=== PATIENT | male | born 1975 | race Caucasian/White ===

== ENCOUNTER → 2017-06-01 | Outpatient (CLI) | payer BC ==
--- NOTE | 2017-06-01 12:52 | US ---
EXAMINATION TYPE: US abdomen complete DATE OF EXAM: 06/01/2017 COMPARISON: NONE CLINICAL HISTORY: R74.8 ABN LEVELS OF OTHER SERUM ENZYMES. Elevated liver enzymes EXAM MEASUREMENTS: Liver Length: 18.1 cm Gallbladder Wall: 0.3 cm CBD: 0.4 cm Spleen: 11.8 cm Right Kidney: 11.8 x 4.7 x 5.5 cm Left Kidney: 12.6 x 5.9 x 4.8 cm Technical limitations due to large amount of overlying bowel content Pancreas: Obscured by bowel gas Liver: enlarged, attenuating Gallbladder: no evidence of stones Evidence for sonographic Moya's sign: no CBD: appears wnl as visualized Spleen: wnl Right Kidney: no evidence of hydronephrosis Left Kidney: upper limits of normal in size, no evidence of hydronephrosis Upper IVC: wnl Abd Aorta: visualized portions appear wnl, bifurcation obscured IMPRESSION: 1. Mild fatty infiltration the liver
== END | disposition home or self-care (01) ==
LOC: RADUSWWP 06:55
PROVIDERS: ATTEND Family Medicine
DX: K76.0 Fatty (change of) liver, not elsewhere classified (principal)
CPT/HCPCS: 76700

== ENCOUNTER 2024-04-17 19:52 | Emergency (ER) | payer BC ==
--- NOTE | 2024-04-17 20:20 | ED ---
Abdominal Pain HPI <Carleen Anderson - Last Filed: 04/17/24 20:17> <Bart Montelongo - Last Filed: 05/03/24 03:14> - General Stated Complaint: mass on abd Time Seen by Provider: 04/17/24 20:17 - History of Present Illness Initial Comments: Quick [id number] male presenting for mass in abdomen. States for the past 4 days he has been experiencing right-sided abdominal pain that has been worsening in severity over the past day. Today he underwent CT abdomen with contrast ordered by PCP which revealed 7.5 cm mass in abdomen and was sent to ER for further workup. States they believe it may be an abdominal aortic aneurysm. (Carleen Anderson) - Related Data Home Medications Medication Instructions Recorded Confirmed Estrogen Tab 1 dose PO DAILY 06/30/21 07/05/21 Loratadine-Pseudoeph 10-240 mg 1 tab PO DAILY 06/30/21 07/05/21 [Claritin-D 24 Hour] Multivitamins, Thera [Multivitamin 1 tab PO DAILY 06/30/21 07/05/21 (formulary)] Testosterone Injection 1 dose SQ WEEKLY 06/30/21 07/05/21 diphenhydrAMINE [Benadryl] 50 mg PO HS PRN 06/30/21 07/05/21 Previous Rx's Medication Instructions Recorded Acetaminophen-Codeine 300-30mg 1 tab PO Q4H PRN #16 tablet 04/17/24 [Tylenol w/codeine #3] Allergies Allergy/AdvReac Type Severity Reaction Status Date / Time No Known Allergies Allergy Verified 04/17/24 20:44 Review of Systems ROS Other: All systems not noted in ROS Statement are negative. <Carleen Anderson - Last Filed: 04/17/24 20:17> ROS Other: All systems not noted in ROS Statement are negative. <Bart Montelongo - Last Filed: 05/03/24 03:14> ROS Statement: Those systems with pertinent positive or pertinent negative responses have been documented in the HPI. Past Medical History Additional Past Medical History / Comment(s): allergies., hx fatty liver., states having pain right side. History of Any Multi-Drug Resistant Organisms: MRSA Date of last positivie culture/infection: 10 yrs ago- 2011 MDRO Source:: arm Additional Past Surgical History / Comment(s): colonoscopy Past Anesthesia/Blood Transfusion Reactions: Previous Problems w/ Anesthesia Additional Past Anesthesia/Blood Transfusion Reaction / Comment(s): states difficulty coming out of anesthesia. Past Psychological History: No Psychological Hx Reported Smoking Status: Never smoker Past Alcohol Use History: Occasional Past Drug Use History: None Reported - Past Family History Mother Additional Family Medical History / Comment(s): celiac disease <Carleen Anderson - Last Filed: 04/17/24 20:17> General Exam <Carleen Anderson - Last Filed: 04/17/24 20:17> General appearance: alert, in no apparent distress Head exam: Present: atraumatic, normocephalic Eye exam: Present: normal appearance. Absent: scleral icterus, conjunctival injection ENT exam: Present: normal oropharynx Neck exam: Present: normal inspection Respiratory exam: Present: normal lung sounds bilaterally. Absent: respiratory distress, wheezes, rales, rhonchi, stridor, accessory muscle use Cardiovascular Exam: Present: regular rate, normal rhythm, normal heart sounds. Absent: systolic murmur, diastolic murmur, rubs, gallop GI/Abdominal exam: Present: soft, tenderness (Mild right upper quadrant tenderness no rebound or guarding). Absent: distended, guarding, rebound, rigid, mass, pulsatile mass, hernia Extremities exam: Present: normal inspection, normal capillary refill. Absent: pedal edema, calf tenderness Back exam: Present: normal inspection. Absent: CVA tenderness (R), CVA tenderness (L) Neurological exam: Present: alert Skin exam: Present: warm, dry, intact, normal color. Absent: rash <Bart Montelongo - Last Filed: 05/03/24 03:14> - General Exam Comments Initial Comments: Visual Physical Exam General: Well-appearing, nontoxic, no acute distress. Head: Normocephalic, atraumatic Eyes: PERRLA, EOMI ENT: Airway patent Chest: Nonlabored breathing Skin: No visual rash, normal skin tone Neuro: Alert and oriented 3 Musculoskeletal: No gross abnormalities (Carleen Anderson) Course Vital Signs 04/17/24 04/17/24 04/17/24 20:39 22:01 23:31 Temperature 98.5 F Pulse Rate 92 84 84 Respiratory 22 18 18 Rate Blood Pressure 158/89 177/119 175/102 O2 Sat by Pulse 97 99 99 Oximetry Medical Decision Making <JustinTelmaCarleen - Last Filed: 04/17/24 20:17> - Lab Data Result diagrams: 04/17/24 21:21 04/17/24 21:21 <AartiwashingtonBart - Last Filed: 05/03/24 03:14> - Medical Decision Making I completed the quick note portion of this chart signed Carleen Anderson PA-C (Carleen Anderson) Was pt. sent in by a medical professional or institution (Dr. PA, GENERAL MERCHANDISE MANAGER, urgent care, hospital, or [place] health [place] facility...) When possible be specific @ -Differential Abdominal Pain Men: Appendicitis, cholecystitis, diverticulosis, ischemic bowel, pancreatitis, hepatitis, UTI, gastroenteritis, AAA, incarcerated hernia, bowel obstruction, constipation, inflammatory bowel, hepatitis, peptic ulcer disease, splenic infarction, perforated viscus, testicular torsion, this is not meant to be an all-inclusive list Did you speak to anyone other than the patient for history (EMS, parent, family, police, friend...)? What history was obtained from this source @ -[No] Did you review nursing and triage notes (agree or disagree)? Why? @ -[I reviewed and agree with nursing and triage notes] Were old charts reviewed (outside hosp., previous admission, EMS record, old EKG, old radiological studies, urgent care reports/EKG's, [place] health care facility records)? Report findings @ -[No old charts were reviewed] Differential Diagnosis (chest pain, altered mental status, abdominal pain women, abdominal pain men, vaginal bleeding, weakness, fever, dyspnea, syncope, headache, dizziness, GI bleed, back pain, seizure, CVA, palpatations, mental health, musculoskeletal)? @ -[not applicable] EKG interpreted by me (3pts min.). @ -[As above] X-rays interpreted by me (1pt min.). @ -[None done] CT interpreted by me (1pt min.). @ -[None done] U/S interpreted by me (1pt. min.). @ -[None done] What testing was considered but not performed or refused? (CT, X-rays, U/S, labs)? Why? @ -[None] What meds were considered but not given or refused? Why? @ -[None] Did you discuss the management of the patient with other professionals (professionals i.e. , PA, GENERAL MERCHANDISE MANAGER, lab, RT, psych nurse, social staff worker, reservations sales supervisor, teacher, corporate banking officer, case specialist)? Give summary @ -[Discussed case with the patient's primary physician to help expedite workup Was smoking cessation discussed for >3mins.? @ -[No] Was critical care preformed (if so, how long)? @ -[No] Were there social determinants of health that impacted care today? How? (Homelessness, low income, unemployed, alcoholism, drug addiction, transportation, low edu. Level, literacy, decrease access to med. care, [facility], rehab)? @ -[No] Was there de-escalation of care discussed even if they declined (Discuss DNR or withdrawal of care, Hospice)? DNR status @ -[No] What co-morbidities impacted this encounter? (DM, HTN, Smoking, COPD, CAD, Cancer, CVA, ARF, Chemo, Hep., AIDS, mental health diagnosis, sleep apnea, morbid obesity)? @ -[None] Was patient admitted / discharged? Hospital course, mention meds given and route, prescriptions, significant lab abnormalities, going to OR and other pe rtinent info. @ -[Patient is 48-year-old man who is here to have evaluation after he was found to have mass in the right upper quadrant which was concerning for possible venous aneurysm. The patient did have additional evaluation with ultrasound and at this point is felt that the mass does not involve an aneurysm. Discussed findings with the patient who would like to have further workup as outpatient. He does appear stable for this at the moment. We discussed appropriate further care and also return parameters. I did discuss with the patient's primary physician who will help to expedite the workup. Undiagnosed new problem with uncertain prognosis? @ -[No] Drug Therapy requiring intensive monitoring for toxicity (Heparin, Nitro, Insulin, Cardizem)? @ -[No] Were any procedures done? @ -[No] Diagnosis/symptom? @ -[Acute right upper quadrant abdominal mass Acute, or Chronic, or Acute on Chronic? @ -[Acute Uncomplicated (without systemic symptoms) or Complicated (systemic symptoms)? @ -[Uncomplicated Side effects of treatment? @ -[No] Exacerbation, Progression, or Severe Exacerbation? @ -[No] Poses a threat to life or bodily function? How? (Chest pain, [place], [place], pneumonia, PE, COPD, DKA, ARF, appy, cholecystitis, CVA, Diverticulitis, Homicidal, Suicidal, threat to staff... and all critical care pts) @ -[Yes there is risk of malignancy, requires close follow-up for additional evaluation All treatments are based on ideal body weight as in ED triage (Bart Montelongo) - Lab Data Lab Results 04/17/24 04/17/24 04/17/24 Range/Units 21:21 21:21 22:01 WBC 6.9 (3.8-10.6) k/uL RBC 5.76 (4.30-5.90) m/uL Hgb 17.3 (13.0-17.5) gm/dL Hct 50.9 (39.0-53.0) % MCV 88.3 (80.0-100.0) fL MCH 30.0 (25.0-35.0) pg MCHC 34.0 (31.0-37.0) g/dL RDW 12.6 (11.5-15.5) % Plt Count 220 (150-450) k/uL MPV 7.6 Neutrophils % 58 % Lymphocytes % 27 % Monocytes % 6 % Eosinophils % 7 % Basophils % 1 % Neutrophils # 4.0 (1.3-7.7) k/uL Lymphocytes # 1.8 (1.0-4.8) k/uL Monocytes # 0.4 (0-1.0) k/uL Eosinophils # 0.5 (0-0.7) k/uL Basophils # 0.0 (0-0.2) k/uL Sodium 138 (137-145) mmol/L Potassium 4.4 (3.5-5.1) mmol/L Chloride 102 (98-107) mmol/L Carbon Dioxide 25 (22-30) mmol/L Anion Gap 11 mmol/L BUN 17 (9-20) mg/dL Creatinine 1.04 (0.66-1.25) mg/dL Est GFR (CKD-EPI)AfAm >90 (>60 ml/min/1.73 sqM) Est GFR (CKD-EPI)NonAf 84 (>60 ml/min/1.73 sqM) Glucose 104 H (74-99) mg/dL Calcium 10.0 (8.4-10.2) mg/dL Total Bilirubin 0.8 (0.2-1.3) mg/dL AST 45 (17-59) U/L ALT 51 H (4-49) U/L Alkaline Phosphatase 87 (38-126) U/L Total Protein 8.8 H (6.3-8.2) g/dL Albumin 5.1 H (3.5-5.0) g/dL Amylase 57 (30-110) U/L Lipase 95 (23-300) U/L Urine Color Light Yellow Urine Appearance Clear (Clear) Urine pH 6.5 (5.0-8.0) Ur Specific [place] 1.046 H (1.001-1.035) Urine Protein Negative (Negative) Urine Glucose (UA) Negative (Negative) Urine Ketones Negative (Negative) Urine Blood Negative (Negative) Urine Nitrite Negative (Negative) Urine Bilirubin Negative (Negative) Urine Urobilinogen <2.0 (<2.0) mg/dL Ur Leukocyte Esterase Negative (Negative) Disposition <Carleen Anderson - Last Filed: 04/17/24 20:17> Is patient prescribed a controlled substance at d/c from ED?: Yes When asked, does pt state using other controlled substances?: No If prescribed controlled substance>3 days was MAPS reviewed?: Prescribed <3 Days If opioid is for acute pain is fill amount 7 days or less?: Yes If Rx opioid, was Start Talking consent form obtained?: Yes <Bart Montelongo - Last Filed: 05/03/24 03:14> Clinical Impression: Abdominal mass, right upper quadrant Disposition: HOME SELF-CARE Condition: Good Instructions (If sedation given, give patient instructions): Abdominal Pain (ED) Additional Instructions: As we discussed, you must follow-up to have further evaluation of the abdominal mass. MRI may be required or biopsy, to ensure that this does not represent a tumor or cancer. Prescriptions: Acetaminophen-Codeine 300-30mg [Tylenol w/codeine #3] 1 tab PO Q4H PRN #16 tablet PRN Reason: Pain Referrals: Alexy Jacobs MD [Primary Care Provider] - 1-2 days
[2024-04-17 20:44] VITALS: TEMP 98.5
[2024-04-17 21:34] LABS: Basophils % (A) 1 %; Eosinophils # (A) 0.5 k/uL (0-0.7); Eosinophils % (A) 7 %; HCT 50.9 % (39.0-53.0); HGB 17.3 gm/dL (13.0-17.5); Lymphocytes # (A) 1.8 k/uL (1.0-4.8); Lymphocytes % (A) 27 %; MCV 88.3 fL (80.0-100.0); Mean Platelet Volume 7.6; Monocytes # (A) 0.4 k/uL (0-1.0); Monocytes % (A) 6 %; Neutrophils % (A) 58 %; Platelet Count 220 k/uL (150-450); RBC 5.76 m/uL (4.30-5.90); RDW 12.6 % (11.5-15.5); WBC 6.9 k/uL (3.8-10.6)
[2024-04-17 21:47] LABS: ALT 51 U/L (4-49); African American GFR (CKD) >90 (>60 ml/min/1.73 sqM); Amylase 57 U/L (30-110); Anion Gap 11 mmol/L; Blood Urea Nitrogen 17 mg/dL (9-20); Carbon Dioxide 25 mmol/L (22-30); Chloride 102 mmol/L (98-107); Glucose 104 mg/dL (74-99); Lipase 95 U/L (23-300); Non-African American GFR(CKD) 84 (>60 ml/min/1.73 sqM); Sodium 138 mmol/L (137-145); Total Bilirubin 0.8 mg/dL (0.2-1.3)
[2024-04-17 21:51] LABS: AST 45 U/L (17-59); Albumin 5.1 g/dL (3.5-5.0); Alkaline Phosphatase 87 U/L (38-126); Potassium 4.4 mmol/L (3.5-5.1); Total Protein 8.8 g/dL (6.3-8.2)
--- NOTE | 2024-04-17 21:59 | US ---
EXAMINATION TYPE: US abdomen limited DATE OF EXAM: 04/17/2024 COMPARISON: Same day CT CLINICAL INDICATION: Male, 48 years old with history of evaluate abdominal mass near IVC; Abnormal CT TECHNIQUE: Midline ABD near IVC FINDINGS: Solid, hypoechoic mass midline abdomen as visualized on CT compressing IVC= 8.9 x 6.3 x 6. 5 cm, this has peripheral blood flow ?etiology There is a hypoechoic mass which may have a small amount of vascularity within or adjacent to this st ructure. This structure is adjacent to the inferior vena cava. Based on the ultrasound images this ap pears to be compressing and displacing the inferior vena cava. No large internal flow is evident. IMPRESSION: 1. Large mass adjacent to the inferior vena cava appears to be separate from the inferior vena cava based on ultrasound. Mass such as neoplasm should be considered. Additional workup recommended [facility], , 04/17/2024 9:57 PM
[2024-04-17 22:04] VITALS: PULSE 84; RESP 18
[2024-04-17 22:26] LABS: Appearance,Urine Clear (Clear); Bilirubin,Urine Negative (Negative); Blood,Urine Negative (Negative); Color,Urine Light Yellow; Glucose,Urine (UA) Negative (Negative); Ketones,Urine Negative (Negative); Leukocyte Esterase,Urine Negative (Negative); Nitrite,Urine Negative (Negative); PH, Urine 6.5 (5.0-8.0); Protein,Urine Negative (Negative); Urobilinogen,Urine <2.0 mg/dL (<2.0)
[2024-04-17 22:57] LABS: Specific Gravity,Urine 1.046 (1.001-1.035)
[2024-04-17] MEDS: Acetaminophen-Codeine 300-30mg TAB PO STA (23:30)
[2024-04-17 23:32] VITALS: BP 175/102
== END 2024-04-17 23:32 | disposition home or self-care (01) ==
LOC: EC 19:52
DX: R19.01 Right upper quadrant abdominal swelling, mass and lump (principal)
CPT/HCPCS: 36415; 76705; 80053; 81003; 82150; 83690; 85025; 99284

== ENCOUNTER → 2024-04-17 | Outpatient (CLI) | payer BC ==
[2024-04-17 16:40] LABS: Basophils # (A) 0.1 k/uL (0-0.2); Basophils % (A) 1 %; Eosinophils # (A) 0.4 k/uL (0-0.7); Eosinophils % (A) 6 %; HCT 49.3 % (39.0-53.0); HGB 16.4 gm/dL (13.0-17.5); Lymphocytes % (A) 26 %; MCH 29.6 pg (25.0-35.0); MCHC 33.3 g/dL (31.0-37.0); MCV 88.9 fL (80.0-100.0); Mean Platelet Volume 7.6; Monocytes # (A) 0.6 k/uL (0-1.0); Monocytes % (A) 8 %; Neutrophils # (A) 4.1 k/uL (1.3-7.7); Neutrophils % (A) 55 %; Platelet Count 221 k/uL (150-450); RBC 5.55 m/uL (4.30-5.90); RDW 12.6 % (11.5-15.5); WBC 7.4 k/uL (3.8-10.6)
[2024-04-17 16:48] LABS: ALT 50 U/L (4-49); AST 36 U/L (17-59); African American GFR (CKD) 81 (>60 ml/min/1.73 sqM); Albumin 4.9 g/dL (3.5-5.0); Albumin/Globulin Ratio 1.4; Alkaline Phosphatase 87 U/L (38-126); Amylase 57 U/L (30-110); Anion Gap 9 mmol/L; Blood Urea Nitrogen 19 mg/dL (9-20); Calcium 10.2 mg/dL (8.4-10.2); Carbon Dioxide 27 mmol/L (22-30); Chloride 102 mmol/L (98-107); Globulin 3.4 g/dL; Glucose 87 mg/dL (74-99); Lipase 86 U/L (23-300); Non-African American GFR(CKD) 70 (>60 ml/min/1.73 sqM); Potassium 4.5 mmol/L (3.5-5.1); Sodium 138 mmol/L (137-145); Total Bilirubin 0.6 mg/dL (0.2-1.3); Total Protein 8.3 g/dL (6.3-8.2)
--- NOTE | 2024-04-17 18:51 | CT ---
EXAMINATION TYPE: CT abdomen pelvis w con DATE OF EXAM: 04/17/2024 5:49 PM COMPARISON: None. CLINICAL INDICATION: Male, 48 years old with history of R19.00 INTRA-ABD AND PELVIC SWELLING, MASS AN D LUM, Intra-abdominal pelvic swelling, mass and lump unspecified site. TECHNIQUE: Axial images were obtained from above the diaphragm to the pubic rami in the axial plane a t 5 mm thick sections. Reconstructed images are reviewed on the computer in the coronal plane. CONTRAST: 100 ml mL of Isovue 300. Study performed with Oral Contrast DLP: 1964.2 mGycm, Automated exposure control for dose reduction was used. FINDINGS: Limited CT sections are obtained the lung bases. The lung bases are clear. CT ABDOMEN: Liver: Normal Spleen: Normal Pancreas: Normal Adrenal glands: The adrenal glands are normal. Gallbladder: Normal Kidneys: No masses are evident. No hydronephrosis is present. No cysts are present. Delayed images were obtained through the kidneys, which remain unremarkable. Aorta: Normal Inferior vena cava: There may be a large mass or aneurysm within the mid inferior vena cava. This kai sures 7.[address] with contrast in the venous phase may be useful for additional evaluatio n. Ultrasound may be useful for additional workup CT PELVIS: Loops of bowel within the abdomen and pelvis are normal. Scattered diverticuli are present. There are loops of bowel which are incompletely distended or lack oral contrast limiting their evaluation. Appendix: Normal as visualized. Urinary bladder: Normal. Genitourinary structures: Prostate appears normal Osseous structures: No suspicious lytic or sclerotic lesions. IMPRESSION: 1. Large mass involving or adjacent to the mid inferior vena cava. This area measures approximately 7.5 cm in diameter. Additional workup is recommended. [facility], , 04/17/2024 6:48 PM
== END | disposition home or self-care (01) ==
LOC: RADCTMAIN 15:53
PROVIDERS: ATTEND Family Medicine
DX: R19.00 Intra-abdominal and pelvic swelling, mass and lump, unspecified site (principal)
CPT/HCPCS: 80053; 82150; 83690; 85025; 74177; Q9967

== ENCOUNTER 2024-05-28 16:48 | Observation (INO) | payer BC ==
--- NOTE | 2024-05-28 20:05 | ED ---
General Adult HPI - General Chief complaint: Headache Stated complaint: high blood pressure after chemo Time Seen by Provider: 05/28/24 19:48 Source: patient Mode of arrival: ambulatory Limitations: no limitations - History of Present Illness Initial comments: Patient is a pleasant 48-year-old gentleman past medical history of testicular cancer currently receiving chemotherapy presenting today for hypertension. Patient states that in April he presented for abdominal pain was found to have a mass in his abdomen concerning for testicular cancer. He was noted to have hypertension at that point however was not started on any blood pressure medications. Patient started chemotherapy on Sunday and received it daily since then. Over the last 3 days his blood pressure is continuously increased. He was also started on steroids on Sunday as well. Patient states that today he developed a pounding headache, rates pain as 5/10. Developed during ch emotherapy today. He was sent to the emergency department for further evaluation of high blood pressure. Patient denies changes in vision, focal numbness or weakness, slurred speech, dizziness. He states he has intermittent cramping left-sided chest pain but denies any currently. No history ACS, patient's father did have a heart attack in his 60s. No history of strokes. Patient denies no nausea or vomiting but does state he does get this with just with chemotherapy. Denies abdominal pain, fevers or chills. - Related Data Home Medications Medication Instructions Recorded Confirmed Aprepitant 80 mg PO DIRECTED 05/28/24 05/28/24 OLANZapine [ZyPREXA] 2.5 mg PO DIRECTED 05/28/24 05/28/24 Ondansetron [Zofran] 4 mg PO Q8H PRN 05/28/24 05/28/24 Previous Rx's Medication Instructions Recorded Acetaminophen-Codeine 300-30mg 1 tab PO Q4H PRN #16 tablet 04/17/24 [Tylenol w/codeine #3] amLODIPine [Norvasc] 10 mg PO DAILY #90 tab 05/30/24 lisinopriL [Zestril] 10 mg PO DAILY #90 tab 05/30/24 Allergies Allergy/AdvReac Type Severity Reaction Status Date / Time No Known Allergies Allergy Verified 05/28/24 20:26 Review of Systems ROS Statement: Those systems with pertinent positive or pertinent negative responses have been documented in the HPI. ROS Other: All systems not noted in ROS Statement are negative. Past Medical History Past Medical History: Cancer, Hyperlipidemia, Hypertension Additional Past Medical History / Comment(s): allergies., hx fatty liver., states having pain right side. testicular CA History of Any Multi-Drug Resistant Organisms: MRSA Date of last positivie culture/infection: 10 yrs ago- 2011 MDRO Source:: arm Additional Past Surgical History / Comment(s): colonoscopy Past Anesthesia/Blood Transfusion Reactions: Previous Problems w/ Anesthesia Additional Past Anesthesia/Blood Transfusion Reaction / Comment(s): states difficulty coming out of anesthesia. Past Psychological History: No Psychological Hx Reported Smoking Status: Never smoker Past Alcohol Use History: Occasional Past Drug Use History: None Reported - Past Family History Mother Additional Family Medical History / Comment(s): celiac disease Father Additional Family Medical History / Comment(s): Prostate CA General Exam - General Exam Comments Initial Comments: PE: CONSTITUTIONAL: No apparent distress, well appearing SKIN: Warm, dry, no jaundice, hives or petechiae EYES: Pupils are equally round, extraocular movements intact without nystagmus, clear conjunctiva, non-icteric sclera HENT: Normocephalic, atraumatic, moist mucus membranes, oropharynx clear without exudates NECK: , Full range of motion, normal appearance PULMONARY: Clear to auscultation without wheezes, rhonchi, or rales, normal excursion, no accessory muscle use and no stridor CARDIOVASCULAR: Regular rate, rhythm, normal S1 and S2. No appreciated murmurs, rubs or gallops. Strong radial pulses with intact distal perfusion. No lower extremity edema GASTROINTESTINAL: Soft, active bowel sounds throughout, non-tender, non- distended, no palpable masses, no rebound or guarding. No hepatosplenomegaly GENITOURINARY: MUSCULOSKELETAL: Extremities have no gross deformity, no edema, redness, or swelling. No calf swelling NEUROLOGIC:_a/o x 3, GCS 15, normal mentation and speech. Moves all extremities x 4 without motor or sensory deficit cranial nerves: II (visual tee without defects), III, IV and (extraocular movements are intact, pupils are equal with normal reaction to light), V (intact facial sensation and jaw opening), VII (no facial droop), IX and X (normal palate movement, midline uvula, normal voice), XI (symmetrical shoulder shrug ), XII (midline tongue protrusion). Motor strength is 5/5 in all extremities. No abnormal movements. Normal muscle tone. Sensation to light touch is intact bilaterally. PSYCHIATRIC:_normal mood and affect, thought process is clear and linear Limitations: no limitations Course Vital Signs 05/28/24 05/28/24 05/29/24 17:12 23:30 00:38 Temperature 97.5 F L Pulse Rate 82 80 84 Respiratory 20 20 20 Rate Blood Pressure 203/118 165/109 170/110 O2 Sat by Pulse 98 99 Oximetry 05/29/24 05/29/24 03:30 06:04 Temperature Pulse Rate 73 72 Respiratory 18 20 Rate Blood Pressure 147/98 161/105 O2 Sat by Pulse 99 100 Oximetry - Reevaluation(s) Reevaluation #1: Blood pressure on reassessment 169/101. 05/28/24 21:21 EKG Findings - EKG Comments: EKG Findings:: Sinus rhythm, 78 bpm MD interval 171 ms QT/QTc 358/392 ms, normal axis, no ST elevations or depressions, no arrhythmia, no STEMI Medical Decision Making - Medical Decision Making Was pt. sent in by a medical professional or institution (, PA, GASTROENTEROLOGY NURSE, urgent care, hospital, or usp...) When possible be specific @ -[Patient was sent in after chemotherapy after being noted to have high blood pressure during chemo Did you speak to anyone other than the patient for history (EMS, parent, family, police, friend...)? What history was obtained from this source @ -No Did you review nursing and triage notes (agree or disagree)? Why? @ -I reviewed nursing and triage notes Were old charts reviewed (outside hosp., previous admission, EMS record, old EKG, old radiological studies, urgent care reports/EKG's, usp records)? Report findings @ -Medical records reviewed reviewed CT chest with contrast performed on 05/14/2024, showed no suspicious pulmonary nodules, no abnormal thoracic adenopathy Differential Diagnosis (chest pain, altered mental status, abdominal pain women, abdominal pain men, vaginal bleeding, weakness, fever, dyspnea, syncope, heada bon, dizziness, GI bleed, back pain, seizure, CVA, palpatations, mental health, musculoskeletal)? @ -differential Headache: Migraine, tension, cluster, central venous thrombosis, pension karma temporal arteritis, acute closure glaucoma, intercranial hemorrhage, mastoiditis, sinusitis, head injury, this is not meant to be an all-inclusive list. Differential diagnosis remains broad however top considerations include hypertensive urgency, hypertensive emergency, thyrotoxicosis, medication side ef fect, metabolic abnormality, pheochromocytoma, this is not all-inclusive list. Regarding patient's headache, differential diagnosis remains broad over top considerations include tension headache, cluster headache, migraine headache, sinusitis, hypertensive emergency causing cerebral edema or subarachnoid hemorrhage were considered however headache is not described as thunderclap, he has no focal neurologic deficits or vision changes, it is not described as the worst headache of his life or thunderclap in nature, did begin this afternoon, therefore do not feel imaging/testing beyond CT brain indicated to further evaluate for hemorrhage. EKG interpreted by me (3pts min.). @ -As above X-rays interpreted by me (1pt min.). CXR does comment on mild cardiomegaly, I personally reviewed CXR and shows possible mild cardiomegaly, otherwise no pleural effusions or consolidations, compared to CXR 05/19/23, no significant increase from prior CT interpreted by me (1pt min.). I personally reviewed CT brain, I see no evidence of hemorrhage or mass effect, agree with radiologist interpretation U/S interpreted by me (1pt. min.). @ -None done What testing was considered but not performed or refused? (CT, X-rays, U/S, labs)? Why? @ -None What meds were considered but not given or refused? Why? @ -None Did you discuss the management of the patient with other professionals (professionals i.e. , PA, GASTROENTEROLOGY NURSE, lab, RT, psych nurse, pediatric social worker, web marketing strategist, teacher, defence force senior officer, case making machine operator)? Give summary @ -No Was smoking cessation discussed for >3mins.? @ -No Was critical care preformed (if so, how long)? Yes 35 minutes Were there social determinants of health that impacted care today? How? (H omelessness, low income, unemployed, alcoholism, drug addiction, transportation, low edu. Level, literacy, decrease access to med. care, custodial, rehab)? @ -No Was there de-escalation of care discussed even if they declined (Discuss DNR or withdrawal of care, Hospice)? @ -No What co-morbidities impacted this encounter? (DM, HTN, Smoking, COPD, CAD, Cancer, CVA, ARF, Chemo, Hep., AIDS, mental health diagnosis, sleep apnea, morbid obesity)? testicular CA actively receiving chemotherapy, HLD Was patient admitted / discharged? Hospital course, mention meds given and route, prescriptions, significant lab abnormalities, going to OR and other pertinent info. @Admission- Patient did spend an extensive time in the waiting room due to bed shortage in the emergency department. On my assessment he is well-appearing in no acute distress. Obtain patient's permission to begin his assessment in the waiting room, obtained history while in waiting room. Patient agreeable. He is a pleasant 48-year-old gentleman past history of high cholesterol and hypertension presenting today for hypertension. Blood pressure here 203/113. Is not on antihypertensives. Endorses pressure-like headache, not worst headache of his life, not sudden in onset or thunderclap like. He has no focal neurodeficits and notes associated cramping left-sided chest pain that is not currently present. Discussed with patient and plan for labetalol, basic labs, CT brain. Patient politely declined pain control this time. Labs and imaging overall reassuring, CXR, did note mild cardiomegaly. CT brain negative for acute process. BP did improve to 150s'/ 101. On reassessment pt endorsed improvement in ESPINOSA. Pt's called Dr. Shen's conference translator RN who requested pt remain for observation due to diastolic BP > 100. On repeat assessment shortly after this BP 169/109. Will order oral lisinopril and admit for obs as requested. Case discussed with Dr. Diaz, kindly accepts patient for admission. OF note, I did attempt to call conference translator RN with Dr. Shen's office, via conference translator line provided by pt's , since pt's noted they request I contact them, however I was unable to get in touch with them after waiting on hold. Undiagnosed new problem with uncertain prognosis? @ -No Drug Therapy requiring intensive monitoring for toxicity (Heparin, Nitro, Insulin, Cardizem)? @ -No Were any procedures done? @ -No Diagnosis/symptom? @Headache, hypertensive urgency Acute, or Chronic, or Acute on Chronic? acute Uncomplicated (without systemic symptoms) or Complicated (systemic symptoms)? complicated Side effects of treatment? @ Potentially side effect of chemotherapy or steroid treatment Exacerbation, Progression, or Severe Exacerbation? @ -No Poses a threat to life or bodily function? How? (Chest pain, USA, ID, pneumonia, PE, COPD, DKA, ARF, appy, cholecystitis, CVA, Diverticulitis, Homicidal, Suicidal, threat to staff... and all critical care pts) @ -potentially - Lab Data Result diagrams: 05/30/24 08:55 05/30/24 08:55 Lab Results 05/28/24 05/28/24 05/28/24 Range/Units 20:30 20:30 20:30 WBC 12.9 H (3.8-10.6) k/uL RBC 5.06 (4.30-5.90) m/uL Hgb 14.6 (13.0-17.5) gm/dL Hct 44.8 (39.0-53.0) % MCV 88.7 (80.0-100.0) fL MCH 28.8 (25.0-35.0) pg MCHC 32.5 (31.0-37.0) g/dL RDW 12.6 (11.5-15.5) % Plt Count 214 (150-450) k/uL MPV 7.8 Neutrophils % 91 % Lymphocytes % 6 % Monocytes % 3 % Eosinophils % 0 % Basophils % 0 % Neutrophils # 11.7 H (1.3-7.7) k/uL Lymphocytes # 0.8 L (1.0-4.8) k/uL Monocytes # 0.3 (0-1.0) k/uL Eosinophils # 0.0 (0-0.7) k/uL Basophils # 0.0 (0-0.2) k/uL PT 10.9 (10.0-12.5) sec INR 1.0 (<1.2) APTT 21.2 L (22.0-30.0) sec Sodium 133 L (137-145) mmol/L Potassium 4.8 (3.5-5.1) mmol/L Chloride 99 (98-107) mmol/L Carbon Dioxide 23 (22-30) mmol/L Anion Gap 11 mmol/L BUN 23 H (9-20) mg/dL Creatinine 0.85 (0.66-1.25) mg/dL Est GFR (CKD-EPI)AfAm >90 (>60 ml/min/1.73 sqM) Est GFR (CKD-EPI)NonAf >90 (>60 ml/min/1.73 sqM) Glucose 140 H (74-99) mg/dL Calcium 9.9 (8.4-10.2) mg/dL Magnesium 2.3 (1.6-2.3) mg/dL Total Bilirubin 0.9 (0.2-1.3) mg/dL AST 23 (17-59) U/L ALT 35 (4-49) U/L Alkaline Phosphatase 73 (38-126) U/L Troponin I (0.000-0.034) ng/mL NT-Pro-B Natriuret Pep pg/mL Total Protein 7.6 (6.3-8.2) g/dL Albumin 4.6 (3.5-5.0) g/dL Urine Color Urine Appearance (Clear) Urine pH (5.0-8.0) Ur Specific [place] (1.001-1.035) Urine Protein (Negative) Urine Glucose (UA) (Negative) Urine Ketones (Negative) Urine Blood (Negative) Urine Nitrite (Negative) Urine Bilirubin (Negative) Urine Urobilinogen (<2.0) mg/dL Ur Leukocyte Esterase (Negative) 05/28/24 05/28/24 05/28/24 Range/Units 20:30 20:30 20:45 WBC (3.8-10.6) k/uL RBC (4.30-5.90) m/uL Hgb (13.0-17.5) gm/dL Hct (39.0-53.0) % MCV (80.0-100.0) fL MCH (25.0-35.0) pg MCHC (31.0-37.0) g/dL RDW (11.5-15.5) % Plt Count (150-450) k/uL MPV Neutrophils % % Lymphocytes % % Monocytes % % Eosinophils % % Basophils % % Neutrophils # (1.3-7.7) k/uL Lymphocytes # (1.0-4.8) k/uL Monocytes # (0-1.0) k/uL Eosinophils # (0-0.7) k/uL Basophils # (0-0.2) k/uL PT (10.0-12.5) sec INR (<1.2) APTT (22.0-30.0) sec Sodium (137-145) mmol/L Potassium (3.5-5.1) mmol/L Chloride (98-107) mmol/L Carbon Dioxide (22-30) mmol/L Anion Gap mmol/L BUN (9-20) mg/dL Creatinine (0.66-1.25) mg/dL Est GFR (CKD-EPI)AfAm (>60 ml/min/1.73 sqM) Est GFR (CKD-EPI)NonAf (>60 ml/min/1.73 sqM) Glucose (74-99) mg/dL Calcium (8.4-10.2) mg/dL Magnesium (1.6-2.3) mg/dL Total Bilirubin (0.2-1.3) mg/dL AST (17-59) U/L ALT (4-49) U/L Alkaline Phosphatase (38-126) U/L Troponin I <0.012 (0.000-0.034) ng/mL NT-Pro-B Natriuret Pep 75 pg/mL Total Protein (6.3-8.2) g/dL Albumin (3.5-5.0) g/dL Urine Color Colorless Urine Appearance Clear (Clear) Urine pH 6.0 (5.0-8.0) Ur Specific [place] 1.022 (1.001-1.035) Urine Protein Negative (Negative) Urine Glucose (UA) Negative (Negative) Urine Ketones Negative (Negative) Urine Blood Negative (Negative) Urine Nitrite Negative (Negative) Urine Bilirubin Negative (Negative) Urine Urobilinogen <2.0 (<2.0) mg/dL Ur Leukocyte Esterase Negative (Negative) Disposition Clinical Impression: Hypertensive urgency, Headache Disposition: ADMITTED IP TO THIS HOSP Condition: Stable
[2024-05-28] MEDS: LABETALOL SYRINGE 5 MG/ML (4 ML SYR) IVP STA (20:21)
--- NOTE | 2024-05-28 21:00 | XR ---
EXAMINATION TYPE: XR chest 2V DATE OF EXAM: 05/28/2024 8:43 PM COMPARISON: Chest x-ray 9 days ago CLINICAL INDICATION: Male, 48 years old with history of Chest Pain, TECHNIQUE: Frontal and lateral views of the chest are obtained. FINDINGS: Stable right internal jugular Mediport catheter. There is no focal air space opacity, pleur al effusion, or pneumothorax seen. Persistent mild cardiomegaly. The osseous structures are intact. IMPRESSION: Mild cardiomegaly without acute pulmonary process. [facility], , 05/28/2024 8:57 PM
[2024-05-28 21:05] LABS: Appearance,Urine Clear (Clear); Bilirubin,Urine Negative (Negative); Blood,Urine Negative (Negative); Color,Urine Colorless; Glucose,Urine (UA) Negative (Negative); Ketones,Urine Negative (Negative); Leukocyte Esterase,Urine Negative (Negative); Nitrite,Urine Negative (Negative); Protein,Urine Negative (Negative); Specific Gravity,Urine 1.022 (1.001-1.035); Urobilinogen,Urine <2.0 mg/dL (<2.0)
[2024-05-28 21:09] LABS: ALT 35 U/L (4-49); AST 23 U/L (17-59); African American GFR (CKD) >90 (>60 ml/min/1.73 sqM); Albumin 4.6 g/dL (3.5-5.0); Alkaline Phosphatase 73 U/L (38-126); Anion Gap 11 mmol/L; Blood Urea Nitrogen 23 mg/dL (9-20); Calcium 9.9 mg/dL (8.4-10.2); Carbon Dioxide 23 mmol/L (22-30); Chloride 99 mmol/L (98-107); Glucose 140 mg/dL (74-99); Magnesium 2.3 mg/dL (1.6-2.3); Non-African American GFR(CKD) >90 (>60 ml/min/1.73 sqM); Potassium 4.8 mmol/L (3.5-5.1); Sodium 133 mmol/L (137-145); Total Bilirubin 0.9 mg/dL (0.2-1.3); Total Protein 7.6 g/dL (6.3-8.2)
[2024-05-28 21:13] LABS: Prothrombin Time 10.9 sec (10.0-12.5)
[2024-05-28 21:14] LABS: Partial Thromboplastin Time 21.2 sec (22.0-30.0)
[2024-05-28 21:25] LABS: Basophils % (A) 0 %; Eosinophils % (A) 0 %; HCT 44.8 % (39.0-53.0); HGB 14.6 gm/dL (13.0-17.5); Lymphocytes # (A) 0.8 k/uL (1.0-4.8); Lymphocytes % (A) 6 %; MCH 28.8 pg (25.0-35.0); MCHC 32.5 g/dL (31.0-37.0); MCV 88.7 fL (80.0-100.0); Mean Platelet Volume 7.8; Monocytes # (A) 0.3 k/uL (0-1.0); Monocytes % (A) 3 %; Neutrophils # (A) 11.7 k/uL (1.3-7.7); Neutrophils % (A) 91 %; Platelet Count 214 k/uL (150-450); RBC 5.06 m/uL (4.30-5.90); RDW 12.6 % (11.5-15.5); WBC 12.9 k/uL (3.8-10.6)
--- NOTE | 2024-05-28 21:33 | CT ---
EXAMINATION TYPE: CT brain wo con DATE OF EXAM: 05/28/2024 COMPARISON: None. CLINICAL INDICATION: Male, 48 years old with history of ESPINOSA, HTN; PHH, ESPINOSA, HTN. TECHNIQUE: CT of the brain performed without contrast with sagittal and coronal reformats. CT DLP: 1264.1 mGycm Automated exposure control for dose reduction was used. FINDINGS: There is no acute intracranial hemorrhage, mass effect, or midline shift identified. The ventricles and sulci are within normal limits in size for patient's age. [place]-white matter differentiation is pr eserved. The globes are intact and the visualized sinuses are clear. Calcification in the bilateral e ars is noted. IMPRESSION: No acute intracranial hemorrhage or midline shift is seen. [facility], , 05/28/2024 9:31 PM
[2024-05-28] MEDS ORDERED: Acetaminophen-Codeine 300-30mg TAB PO PRN (23:17)
[2024-05-28] MEDS ORDERED: ACETAMINOPHEN TAB 325 MG TAB PO PRN (23:34)
[2024-05-28] MEDS ORDERED: MAG HYDROX/AL HYDROX/SIMETH 30 ML CUP PO PRN (23:34)
[2024-05-28] MEDS ORDERED: NALOXONE 0.4 MG/ML 1 ML VIAL IV PRN (23:34)
[2024-05-28] MEDS ORDERED: MORPHINE SULFATE 4 MG/ML SYRINGE IV PRN (23:34)
[2024-05-28] MEDS ORDERED: ALPRAZolam 0.25 MG TAB PO PRN (23:59)
[2024-05-29] MEDS: lisinopriL 5 MG TAB PO STA ×2 (00:27→13:35)
[2024-05-29] MEDS: APREPITANT 80 MG PO SCH (00:28)
[2024-05-29] MEDS: OLANZapine 2.5 MG TAB PO SCH (00:38)
--- NOTE | 2024-05-29 02:41 | P.HPIM ---
History of Present Illness H&P Date: 05/29/24 Patient is a 48-year-old male with a past medical history significant for testicular cancer recently started on chemotherapy and hyperlipidemia presenting to the emergency department today due to hypertension and headache. He began chemotherapy on Sunday and has had it daily as well as taking daily steroids. He states that throughout the week he has had elevated blood pressure but denies headache. Today after his chemo session he developed a pounding frontal headache, checked his blood pressure and noted that the systolic was 197, called the chemo nurse and was told to come to the hospital for further evaluation. He denies changes in vision and balance. He did note 1 episode of tinnitus in his left ear for about 10 seconds today while in the ED. He also reports a couple intermittent episodes of chest pain throughout the week, describes it as a pinching sensation without radiation, that has since resolved. At its worst today he rates his headache a 45/10 but at the time of the interview states that the headache is gone. He does note that the headache returns as his blood pressure elevates. He states that in February 2024 his PCP noted him to have elevated blood pressures with systolic in the 160s but was not started on antihypertensive medications, was started on medication for hypercholesterolemia. Patient states that he has always been able to decrease his blood pressure by resting, but was unable to do so today. He denies nausea (only twice with chemo), vomiting, fever/chills, diaphoresis, dizziness, dyspnea, abdominal pain, hematuria. Initial vitals: BP 2 05/2017, WI 82 bpm, 97.5 F, 98% on room air Initial labs: WBC 12.9, PTT 21.2, sodium 133, potassium 4.8, chloride 99, BUN 23, creatinine 0.85, glucose 140, troponin x 1: <0.012; urinalysis negative Initial EKG: Sinus rhythm with ventricular rate 78 bpm, no ST segment changes, QTc 392 ms Chest x-ray: Mild cardiomegaly without acute pulmonary process Brain CT: No acute intracranial hemorrhage or midline shift is seen ED documentation reviewed. Given lisinopril 5 mg p.o. x 1, labetalol 20 mg IV x 1 Review of systems: Pertinent positives and negatives as discussed in HPI, a complete review of s ystems was performed and all other systems are negative. Social history: Tobacco: Never Alcohol: Occasional Recreational drugs: None reported Travel: None reported Sick contacts: None reported Physical examination: Vital signs reviewed General: Nontoxic, no distress, appears stated age, well-appearing, morbidly obese Derm: Warm, dry, intact, no cyanosis Head: Atraumatic, normocephalic, symmetric Eyes: EOMI, anicteric sclera, PERRL Ears: Normal appearing, no external lesions, hearing intact Nose: Normal appearing, no external lesions Mouth: No lip lesion, mucus membranes moist, no tonsilar hypertrophy or exudate Neck: Supple, without lesions, trachea midline Cardiovascular: S1-S2 regular, no murmur, no pedal edema Lungs: CTA bilateral, no wheezes, no rhonchi, no rales, no accessory muscle use Abdominal: Soft, non-tender to palpation, bowel sounds present Extremities: Muscle strength 5/5 in all extremities, radial pulses 2+ bilateral, posterior tibial pulses 2+ bilateral Neuro: Alert, oriented x 4, gross neurological examination did not reveal any focal deficits. Cranial nerves II to XII grossly intact. Psych: Appropriate affect and mood Assessment and Plan: Patient is a 48-year-old male with a past medical history significant for testicular cancer currently on chemotherapy, hypertension, hyperlipidemia admitted for hypertensive urgency. Active #. Hypertensive urgency Creatinine 0.85, urinalysis negative, troponin x 1: <0.012 AST 23, ALT 35, alkaline phosphatase 73 Monitor vitals Cardiac monitoring Continue with lisinopril 5 mg p.o. daily Begin amlodipine 10 mg p.o. daily Repeat BMP in the morning #. Leukocytosis #. Hyperglycemia Likely reactive to steroid use Chronic #. Testicular cancer On chemotherapy and steroids DVT prophylaxis: Lovenox 40 mg subcutaneous daily The patient is admitted with an anticipated less than 2 midnight stay for evaluation of hypertensive urgency. CODE STATUS: Full code Anticipated discharge place: Pending clinical course Past Medical History Past Medical History: Cancer, Hyperlipidemia, Hypertension Additional Past Medical History / Comment(s): allergies., hx fatty liver., states having pain right side. testicular CA History of Any Multi-Drug Resistant Organisms: MRSA Date of last positivie culture/infection: 10 yrs ago- 2011 MDRO Source:: arm Additional Past Surgical History / Comment(s): colonoscopy Past Anesthesia/Blood Transfusion Reactions: Previous Problems w/ Anesthesia Additional Past Anesthesia/Blood Transfusion Reaction / Comment(s): states difficulty coming out of anesthesia. Past Psychological History: No Psychological Hx Reported Smoking Status: Never smoker Past Alcohol Use History: Occasional Past Drug Use History: None Reported - Past Family History Mother Additional Family Medical History / Comment(s): celiac disease Father Additional Family Medical History / Comment(s): Prostate CA Medications and Allergies Home Medications Medication Instructions Recorded Confirmed Type Acetaminophen-Codeine 300-30mg 1 tab PO Q4H PRN #16 tablet 04/17/24 05/28/24 Rx [Tylenol w/codeine #3] Aprepitant 80 mg PO DIRECTED 05/28/24 05/28/24 History OLANZapine [ZyPREXA] 2.5 mg PO DIRECTED 05/28/24 05/28/24 History Ondansetron [Zofran] 4 mg PO Q8H PRN 05/28/24 05/28/24 History Allergies Allergy/AdvReac Type Severity Reaction Status Date / Time No Known Allergies Allergy Verified 05/28/24 20:26 Physical Exam Vitals: Vital Signs Temp Pulse Resp BP Pulse Ox 05/29/24 00:38 84 20 170/110 99 05/28/24 23:30 80 20 165/109 05/28/24 17:12 97.5 F L 82 20 203/118 98 Intake and Output 05/28/24 05/28/24 05/29/24 14:59 22:59 06:59 Other: Weight 122.924 kg Results CBC & Chem 7: 05/28/24 20:30 05/28/24 20:30 Labs: Abnormal Lab Results - Last 24 Hours (Table) 05/28/24 05/28/24 05/28/24 Range/Units 20:30 20:30 20:30 WBC 12.9 H (3.8-10.6) k/uL Neutrophils # 11.7 H (1.3-7.7) k/uL Lymphocytes # 0.8 L (1.0-4.8) k/uL APTT 21.2 L (22.0-30.0) sec Sodium 133 L (137-145) mmol/L BUN 23 H (9-20) mg/dL Glucose 140 H (74-99) mg/dL Thrombosis Risk Factor Assmnt - Choose All That Apply Each Factor Represents 1 point: Age 41-60 years, Obesity (BMI >25) Each Risk Factor Represents 2 Points: Malignancy Thrombosis Risk Factor Assessment Total Risk Factor Score: 4 Thrombosis Risk Factor Assessment Level: Moderate Risk
[2024-05-29 08:08] LABS: Basophils % (A) 0 %; Eosinophils % (A) 0 %; HCT 44.6 % (39.0-53.0); HGB 14.5 gm/dL (13.0-17.5); Lymphocytes # (A) 1.1 k/uL (1.0-4.8); Lymphocytes % (A) 8 %; MCH 29.1 pg (25.0-35.0); MCHC 32.6 g/dL (31.0-37.0); MCV 89.3 fL (80.0-100.0); Mean Platelet Volume 7.3; Monocytes # (A) 0.5 k/uL (0-1.0); Monocytes % (A) 4 %; Neutrophils # (A) 11.3 k/uL (1.3-7.7); Neutrophils % (A) 88 %; Platelet Count 236 k/uL (150-450); RDW 12.6 % (11.5-15.5); WBC 12.9 k/uL (3.8-10.6)
[2024-05-29 08:21] LABS: African American GFR (CKD) >90 (>60 ml/min/1.73 sqM); Anion Gap 12 mmol/L; Blood Urea Nitrogen 24 mg/dL (9-20); Carbon Dioxide 24 mmol/L (22-30); Chloride 99 mmol/L (98-107); Glucose 162 mg/dL (74-99); Non-African American GFR(CKD) >90 (>60 ml/min/1.73 sqM); Potassium 4.7 mmol/L (3.5-5.1); Sodium 135 mmol/L (137-145)
[2024-05-29] MEDS: lisinopriL 5 MG TAB PO SCH (08:42)
[2024-05-29] MEDS: FAMOTIDINE 20 MG TAB PO SCH (08:42)
[2024-05-29] MEDS: ENOXAPARIN 40 MG/0.4 ML SYRINGE SQ SCH (08:42)
[2024-05-29] MEDS: amLODIPine 10 MG TAB PO SCH (08:42)
[2024-05-29] MEDS: ONDANSETRON ODT 4 MG TAB PO PRN (15:15)
--- NOTE | 2024-05-29 21:18 | P.CONS ---
History of Present Illness - Reason for Consult Consult date: 05/29/24 testicular cancer, on chemo Requesting physician: Sara Mehta - Chief Complaint HTN - History of Present Illness Patient is a 48 year old male with testicular cancer, who follows with Dr. Shen. Patient initially developed shingle in around March/2024, and c/o RUQ and right flank pain from it,which did not resolve,became more persistent and dull pain,had an US of abdomen on 04/17/2024 which showed a large mass adjacent to IVC. CT scan of abdomen/pelvis on 04/17/2024 sshowed 7.5 cm retroperitoneal mass. 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 CT chest negative for metastatic disease. US negative intratesticular mass bilaterally. Pt was thus started on cisplatin/etoposide, and completed cycle 1 day 3 of 5 on 05/28/24. He was noted to have increased BP after day 2 but imoroved on itself, however after day 3 of treatment BP remained elevated at which time he was directed to the ER for further evaluation. Pt was also c/o headache. Upon admission BP noted at 203/118, today BP 161/105, BP medications have been ordered. Pt states headache has improved, rating pain 2/5. Denies CP and SOB. Also reports previous flank pain has since resolved since starting treatment. WBC 12.9, hemoglobin 14.5, platelets 236,000. Creatinine 0 .87, GFR greater than 90. Bilirubin/LFTs WNL. BNP 75, troponin negative. Review of Systems 10 point ROS is negative except as stated in the HPI Past Medical History Past Medical History: Cancer, Hyperlipidemia, Hypertension Additional Past Medical History / Comment(s): seasonal allergies, hx fatty liver in past-resolved per patient, testicular CA with abdominal mets, shingles, took testosterone for 5-6 years- stopped April 05, 2024. History of Any Multi-Drug Resistant Organisms: MRSA Year Discovered:: 2011 MDRO Source:: left arm Past Surgical History: Appendectomy Additional Past Surgical History / Comment(s): colonoscopy, abdominal lymph node biopsy Past Anesthesia/Blood Transfusion Reactions: Previous Problems w/ Anesthesia Additional Past Anesthesia/Blood Transfusion Reaction / Comm: states difficulty coming out of anesthesia. Past Psychological History: No Psychological Hx Reported Smoking Status: Never smoker Past Alcohol Use History: Occasional Past Drug Use History: Marijuana Additional Drug Use History / Comment(s): CBD gummmies - Past Family History Mother Additional Family Medical History / Comment(s): celiac disease Father Family Medical History: Myocardial Infarction ([place]) Additional Family Medical History / Comment(s): Prostate CA Medications and Allergies Home Medications Medication Instructions Recorded Confirmed Type Acetaminophen-Codeine 300-30mg 1 tab PO Q4H PRN #16 tablet 04/17/24 05/28/24 Rx [Tylenol w/codeine #3] Aprepitant 80 mg PO DIRECTED 05/28/24 05/28/24 History OLANZapine [ZyPREXA] 2.5 mg PO DIRECTED 05/28/24 05/28/24 History Ondansetron [Zofran] 4 mg PO Q8H PRN 05/28/24 05/28/24 History Allergies Allergy/AdvReac Type Severity Reaction Status Date / Time No Known Allergies Allergy Verified 05/28/24 20:26 Physical Exam Vitals: Vital Signs Temp Pulse Pulse Resp BP BP Pulse Ox 05/29/24 11:16 86 134/72 05/29/24 07:48 97.7 F 87 16 186/118 95 05/29/24 06:04 72 20 161/105 100 05/29/24 03:30 73 18 147/98 99 05/29/24 00:38 84 20 170/110 99 05/28/24 23:30 80 20 165/109 05/28/24 17:12 97.5 F L 82 20 203/118 98 Intake and Output 05/28/24 05/29/24 05/29/24 22:59 06:59 14:59 Other: Voiding Method Toilet # Voids 1 Weight 122.924 kg 122.924 kg - Constitutional General appearance: no acute distress - EENT Eyes: anicteric sclerae, EOMI ENT: hearing grossly normal - Respiratory Respiratory: bilateral: CTA - Cardiovascular Rhythm: regular - Gastrointestinal General gastrointestinal: soft, no tenderness - Integumentary Integumentary: no cyanotic, no jaundiced - Neurologic Neurologic: CNII-XII intact - Musculoskeletal Musculoskeletal: strength equal bilaterally - Psychiatric Psychiatric: A&O x's 3 Results CBC & Chem 7: 05/29/24 07:53 05/29/24 07:53 Labs: Abnormal Lab Results - Last 24 Hours (Table) 05/28/24 05/28/24 05/28/24 Range/Units 20:30 20:30 20:30 WBC 12.9 H (3.8-10.6) k/uL Neutrophils # 11.7 H (1.3-7.7) k/uL Lymphocytes # 0.8 L (1.0-4.8) k/uL APTT 21.2 L (22.0-30.0) sec Sodium 133 L (137-145) mmol/L BUN 23 H (9-20) mg/dL Glucose 140 H (74-99) mg/dL 05/29/24 05/29/24 Range/Units 07:53 07:53 WBC 12.9 H (3.8-10.6) k/uL Neutrophils # 11.3 H (1.3-7.7) k/uL Lymphocytes # (1.0-4.8) k/uL APTT (22.0-30.0) sec Sodium 135 L (137-145) mmol/L BUN 24 H (9-20) mg/dL Glucose 162 H (74-99) mg/dL Chest x-ray: report reviewed CT Scan - head: report reviewed Assessment and Plan (1) Headache Current Visit: Yes Status: Acute Priority: High Code(s): R51.9 - HEADACHE, UNSPECIFIED SNOMED Code(s): 19386004 (2) Hypertensive urgency Current Visit: Yes Status: Acute Priority: High Code(s): I16.0 - HYPERTENSIVE URGENCY SNOMED Code(s): 435834253 (3) Germ cell tumor Current Visit: No Status: Acute Priority: High Code(s): C80.1 - MALIGNANT (PRIMARY) NEOPLASM, UNSPECIFIED SNOMED Code(s): 929740423 Plan: Hypertension: Patient presented to ER due to HTN and headache. He was noted to have increased BP after day 2 of chemo but improved spontaneously, however after day 3 of treatment, BP remained elevated at which time he was directed to the ER for further evaluation. -Upon admission BP noted at 203/118, today BP 161/105, BP medications have been ordered. -BNP 75, troponin negative -CT head negative for acute processes -HTN may be related to fluids and steroids given with his treatment. HTN can be caused with his regimen but usually r/t decreased kidney function that can be seen months to years after treatment. Patients kidney function is WNL. Will need to continue to closely monitor BP with further treatments -BP has improved since admit. Headache also improved. Defer management of BP to admitting team Testicular cancer: -Oncology history as dictated in the HPI -Completed cycle 1 day 3 of 5 of cisplatin/etoposide on 05/28/24. -Treatment on hold until acute condition resolved attests: I have seen and examined pt, performed H&P, developed impression and plan of care. Discussed with dictator. Agree with documentation, dictated as a scribe.
[2024-05-30] MEDS: lisinopriL 10 MG TAB PO SCH (08:08)
[2024-05-30 08:14] VITALS: BP 150/87; PULSE 70; RESP 17; TEMP 98.3
[2024-05-30 09:14] LABS: Basophils % (A) 0 %; Eosinophils # (A) 0.1 k/uL (0-0.7); Eosinophils % (A) 1 %; HCT 46.6 % (39.0-53.0); HGB 14.5 gm/dL (13.0-17.5); Lymphocytes # (A) 1.6 k/uL (1.0-4.8); Lymphocytes % (A) 24 %; MCH 28.2 pg (25.0-35.0); MCHC 31.1 g/dL (31.0-37.0); MCV 90.8 fL (80.0-100.0); Mean Platelet Volume 7.4; Monocytes # (A) 0.2 k/uL (0-1.0); Monocytes % (A) 3 %; Neutrophils # (A) 4.7 k/uL (1.3-7.7); Neutrophils % (A) 72 %; Platelet Count 219 k/uL (150-450); RBC 5.14 m/uL (4.30-5.90); RDW 12.5 % (11.5-15.5); WBC 6.5 k/uL (3.8-10.6)
[2024-05-30 09:35] LABS: African American GFR (CKD) >90 (>60 ml/min/1.73 sqM); Anion Gap 8 mmol/L; Blood Urea Nitrogen 28 mg/dL (9-20); Calcium 9.4 mg/dL (8.4-10.2); Carbon Dioxide 25 mmol/L (22-30); Chloride 101 mmol/L (98-107); Glucose 133 mg/dL (74-99); Non-African American GFR(CKD) >90 (>60 ml/min/1.73 sqM); Potassium 4.3 mmol/L (3.5-5.1); Sodium 134 mmol/L (137-145)
--- NOTE | 2024-05-30 12:23 | P.DS ---
Providers Date of admission: 05/28/24 23:38 Expected date of discharge: 05/30/24 Attending physician: Chelsie Diaz MD Consults: 05/28/24 23:17 Consult Physician Routine Consulting Provider: Sudha Shen Consult Reason/Comments: Chemotherapy Do you want consulting provider notified?: Yes, Notify in am Primary care physician: Alexy Quezada [facility] Course: Hospital Course: Patient is a 48-year-old male with a past medical history significant for testicular cancer recently started on chemotherapy and hyperlipidemia presenting to the emergency department today due to hypertension and headache. He began chemotherapy on Sunday and has had it daily as well as taking daily steroids. He states that throughout the week he has had elevated blood pressure but denies headache. Today after his chemo session he developed a pounding frontal headache, checked his blood pressure and noted that the systolic was 197, called the chemo nurse and was told to come to the hospital for further evaluation. He denies changes in vision and balance. He did note 1 episode of tinnitus in his left ear for about 10 seconds today while in the ED. He also reports a couple intermittent episodes of chest pain throughout the week, describes it as a pinching sensation without radiation, that has since resolved. At its worst today he rates his headache a 45/10 but at the time of the interview states that the headache is gone. He does note that the headache returns as his blood pressure elevates. He states that in February 2024 his PCP noted him to have elevated blood pressures with systolic in the 160s but was not started on antihypertensive medications, was started on medication for hypercholesterolemia. Patient states that he has always been able to decrease his blood pressure by resting, but was unable to do so today. He denies nausea (only twice with chemo), vomiting, fever/chills, diaphoresis, dizziness, dyspnea, abdominal pain, hematuria. Initial vitals: BP 2 05/2017, LA 82 bpm, 97.5 F, 98% on room air Initial labs: WBC 12.9, PTT 21.2, sodium 133, potassium 4.8, chloride 99, BUN 23, creatinine 0.85, glucose 140, troponin x 1: <0.012; urinalysis negative Initial EKG: Sinus rhythm with ventricular rate 78 bpm, no ST segment changes, QTc 392 ms Chest x-ray: Mild cardiomegaly without acute pulmonary process Brain CT: No acute intracranial hemorrhage or midline shift is seen Patient was admitted for the evaluation of hypertensive urgency. Ordered cardiac monitoring, amlodipine 10 mg p.o., and continued his home lisinopril 5 mg. Heme-onc consulted due to active history of testicular cancer. Patient required increased dose of lisinopril to 10 mg to be medically optimized. Patient symptoms improved throughout hospital stay. Patient had no other co mplications throughout hospital stay. Patient optimized for discharge and was prescribed lisinopril 10 mg and amlodipine 10 mg p.o. Also advised to continue with home medications. Patient advised to follow-up with PCP on outpatient basis. Final Diagnosis: #. Hypertensive urgency #. Testicular cancer #. Leukocytosis, reactive #. Hyperglycemia, reactive to steroid use Physical examination: Vital signs reviewed General: non toxic, no distress Derm: no unusual rashes/lesions, warm Head: atraumatic, normocephalic, symmetric Eyes: EOMI, anicteric sclera, pupils equal round reactive to light ENT: Nose and ears atraumatic Neck: No cervical lymphadenopathy, trachea midline, supple Mouth: no lip lesion, mucus membranes moist Cardiovascular: S1S2 reg, no murmur Lungs: CTA bilateral, no rhonchi, no rales, no accessory muscle use Abdominal: soft, nondistended, nontender to palpation, no guarding Ext: muscle strength 5 out of 5 in all 4 extremities grossly, no gross muscle atrophy, no contractures, positive dorsalis pedis pulse bilateral, no edema Neuro: CN II-XI grossly intact, no gross focal neuro deficits Psych: Alert, oriented, appropriate affect and mood A total of 36 minutes of time were spent preparing this complex discharge summary. Patient was discharged on 05/30/2024 at 948. I have seen and evaluated the patient today. Discussed with the resident and agree with the residents finding and plan as documented in the resident's note. Changes highlighted in blue font. Patient Condition at Discharge: Stable Plan - Discharge Summary New Discharge Prescriptions: New lisinopriL [Zestril] 10 mg PO DAILY #90 tab amLODIPine [Norvasc] 10 mg PO DAILY #90 tab Continue OLANZapine [ZyPREXA] 2.5 mg PO DIRECTED Aprepitant 80 mg PO DIRECTED Acetaminophen-Codeine 300-30mg [Tylenol w/codeine #3] 1 tab PO Q4H PRN #16 tablet PRN Reason: Pain Ondansetron [Zofran] 4 mg PO Q8H PRN PRN Reason: Nausea Discharge Medication List Acetaminophen-Codeine 300-30mg [Tylenol w/codeine #3] 1 tab PO Q4H PRN #16 tablet 04/17/24 [Rx] Aprepitant 80 mg PO DIRECTED 05/28/24 [History] OLANZapine [ZyPREXA] 2.5 mg PO DIRECTED 05/28/24 [History] Ondansetron [Zofran] 4 mg PO Q8H PRN 05/28/24 [History] amLODIPine [Norvasc] 10 mg PO DAILY #90 tab 05/30/24 [Rx] lisinopriL [Zestril] 10 mg PO DAILY #90 tab 05/30/24 [Rx] Follow up Appointment(s)/Referral(s): Alexy Jacobs MD [Primary Care Provider] - 06/02/24 12:45 pm Patient Instructions/Handouts: Hypertensive Crisis (DC) Activity/Diet/Wound Care/Special Instructions: Please see your PCP and oncology. Discharge Disposition: HOME SELF-CARE
== END 2024-05-30 11:36 | disposition home or self-care (01) ==
LOC: EC 16:48 → 5NMEDONC 23:38
PROVIDERS: ADMIT Internal Medicine; ATTEND Internal Medicine
DX: I16.0 Hypertensive urgency (principal); I10 Essential (primary) hypertension; C62.90 Malignant neoplasm of unspecified testis, unspecified whether descended or undescended; E78.00 Pure hypercholesterolemia, unspecified; D72.829 Elevated white blood cell count, unspecified; R73.9 Hyperglycemia, unspecified; Z79.899 Other long term (current) drug therapy; Z82.49 Family history of ischemic heart disease and other diseases of the circulatory system
CPT/HCPCS: 96372 ×2; 96374 ×2; 99291; 36415; 83880; 80053; 80048 ×2; 83735; 84484; 85025 ×3; 85610; 85730; 81003; 71046; 70450; G0378 ×3; J1650 ×2; J1642; J1920

== ENCOUNTER → 2024-07-18 | Outpatient (CLI) | payer BC ==
[2024-07-18 12:46] LABS: African American GFR (CKD) >90 (>60 ml/min/1.73 sqM); Blood Urea Nitrogen 21 mg/dL (9-20); Non-African American GFR(CKD) >90 (>60 ml/min/1.73 sqM)
--- NOTE | 2024-07-18 14:45 | CT ---
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 CONTRAST: CT scan of the chest, abdomen and pelvis is performed with Oral Contrast and with IV Contrast, patien t injected with 100 ml mL of Isovue 300. FINDINGS: CT chest: Right-sided Mediport catheter tip in the SVC/junction. There is no suspicious lung mass or nodule. There is no abnormal airspace/consolidative density or abnormal interstitial density. There is no pleural effusion, pleural thickening or pneumothorax. The great vessels and chest are normal there is no mediastinal, hilar or axillary adenopathy. No focal osseous lesions are seen. CT abdomen and pelvis: Gallbladder is normal without distention, pericholecystic fluid, wall thickening or gallstone. There is no biliary ductal dilatation. There is no focal mass or organomegaly involving the liver, pancreas, spleen or adrenal glands.. There is no solid renal mass or hydronephrosis. Caliber of the abdominal aorta is normal. There is a 3.8 cm pericaval retroperitoneal enlarged lymph node. The bowel loops are normal in caliber and there is no dilatation or obstruction. No inflammatory joshi ges identified in the bowel wall and mesentery. There is no free intracranial air or fluid. There is no pelvic mass or adenopathy. There is no free fluid within the pelvis. No focal osseous lesions are seen. Soft tissue the abdomen and pelvis are normal. IMPRESSION: 1. No evidence of metastatic disease in the chest. 2. 3.8 cm pericaval retroperitoneal enlarged lymph node. [facility], , 07/18/2024 2:43 PM
== END | disposition home or self-care (01) ==
LOC: RADCTMAIN 11:53
PROVIDERS: ATTEND Internal Medicine Hematology & Oncology
DX: C62.90 Malignant neoplasm of unspecified testis, unspecified whether descended or undescended (principal); I10 Essential (primary) hypertension; E78.5 Hyperlipidemia, unspecified; R59.9 Enlarged lymph nodes, unspecified; Z71.3 Dietary counseling and surveillance
CPT/HCPCS: 82565; 84520; 71260; 74177; 36415; Q9967

== ENCOUNTER 2024-08-05 02:01 | Emergency (ER) | payer BC ==
[2024-08-05 02:07] VITALS: RESP 18
--- NOTE | 2024-08-05 02:23 | ED ---
Nausea/Vomiting/Diarrhea HPI - General Chief complaint: Nausea/Vomiting/Diarrhea Stated complaint: Constipation, Vomiting Time Seen by Provider: 08/05/24 02:08 Source: patient, RN notes reviewed, old records reviewed Mode of arrival: wheelchair Limitations: no limitations - History of Present Illness Initial comments: This is a 48-year-old male to the ER for evaluation patient was today for evaluation of nausea vomiting diarrhea weakness but no other complaints. No travel history or sick contacts. Patient has nausea vomit diarrhea constipation. MD complaint: nausea, vomiting, diarrhea, abdominal pain -: days(s) Associated Abdominal Pain: Yes Location: diffuse Radiation: none Severity: moderate Severity scale (1-10): 6 Quality: aching Consistency: constant, intermittent Improves with: none Worsens with: none Context: other Associated Symptoms: loss of appetite, malaise, nausea/vomiting - Related Data Home Medications Medication Instructions Recorded Confirmed Aprepitant 80 mg PO DIRECTED 05/28/24 05/28/24 OLANZapine [ZyPREXA] 2.5 mg PO DIRECTED 05/28/24 05/28/24 Ondansetron [Zofran] 4 mg PO Q8H PRN 05/28/24 05/28/24 Previous Rx's Medication Instructions Recorded Acetaminophen-Codeine 300-30mg 1 tab PO Q4H PRN #16 tablet 04/17/24 [Tylenol w/codeine #3] amLODIPine [Norvasc] 10 mg PO DAILY #90 tab 05/30/24 lisinopriL [Zestril] 10 mg PO DAILY #90 tab 05/30/24 Allergies Allergy/AdvReac Type Severity Reaction Status Date / Time No Known Allergies Allergy Verified 08/05/24 02:06 Review of Systems ROS Statement: Those systems with pertinent positive or pertinent negative responses have been documented in the HPI. ROS Other: All systems not noted in ROS Statement are negative. Past Medical History Past Medical History: Cancer, Hyperlipidemia, Hypertension Additional Past Medical History / Comment(s): allergies., hx fatty liver., states having pain right side. testicular CA History of Any Multi-Drug Resistant Organisms: MRSA Date of last positivie culture/infection: 10 yrs ago- 2011 MDRO Source:: arm Past Surgical History: Appendectomy Additional Past Surgical History / Comment(s): colonoscopy Past Anesthesia/Blood Transfusion Reactions: Previous Problems w/ Anesthesia Additional Past Anesthesia/Blood Transfusion Reaction / Comment(s): states difficulty coming out of anesthesia. Past Psychological History: No Psychological Hx Reported Smoking Status: Never smoker Past Alcohol Use History: Occasional Past Drug Use History: None Reported - Past Family History Mother Additional Family Medical History / Comment(s): celiac disease Father Family Medical History: Myocardial Infarction ([place]) Additional Family Medical History / Comment(s): Prostate CA General Exam Limitations: no limitations General appearance: alert, in no apparent distress Head exam: Present: atraumatic, normocephalic, normal inspection Eye exam: Present: normal appearance, PERRL, EOMI. Absent: scleral icterus, conjunctival injection, periorbital swelling ENT exam: Present: normal exam, mucous membranes moist Neck exam: Present: normal inspection. Absent: tenderness, meningismus, lymphadenopathy Respiratory exam: Present: normal lung sounds bilaterally. Absent: respiratory distress, wheezes, rales, rhonchi, stridor Cardiovascular Exam: Present: regular rate, normal rhythm, normal heart sounds. Absent: systolic murmur, diastolic murmur, rubs, gallop, clicks GI/Abdominal exam: Present: soft, normal bowel sounds. Absent: distended, tenderness, guarding, rebound, rigid Extremities exam: Present: normal inspection, full ROM, normal capillary refill. Absent: tenderness, pedal edema, joint swelling, calf tenderness Back exam: Present: normal inspection Neurological exam: Present: alert, oriented X3, CN II-XII intact Psychiatric exam: Present: normal affect, normal mood Skin exam: Present: warm, dry, intact, normal color. Absent: rash Course Vital Signs 08/05/24 08/05/24 02:03 04:22 Temperature 97.5 F L 98.1 F Pulse Rate 116 H 84 Respiratory 18 18 Rate Blood Pressure 122/86 127/85 O2 Sat by Pulse 100 98 Oximetry - Reevaluation(s) Reevaluation #1: Medical records reviewed Reevaluation #2: Patient's symptoms dramatically improved feels good for discharge Reevaluation #3: Patient informed of results questions answered Reevaluation #4: Was pt. sent in by a medical professional or institution (, PA, CINEMA OPERATOR, urgent care, hospital, or long-term...) When possible be specific @ -no Did you speak to anyone other than the patient for history (EMS, parent, family, police, friend...)? What history was obtained from this source @ -no Did you review nursing and triage notes (agree or disagree)? Why? @ -agree Are old charts reviewed (outside hosp., previous admission, EMS record, old EKG, old radiological studies, urgent care reports/EKG's, long-term records)? Report findings @ -yes Differential Diagnosis (chest pain, altered mental status, abdominal pain women, abdominal pain men, vaginal bleeding, weakness, fever, dyspnea, syncope, headache, dizziness, GI bleed, back pain, seizure, CVA, palpatations, mental health, musculoskeletal)? @ -prior EKG interpreted by me (3pts min.). @ -no X-rays interpreted by me (1pt min.). @ -yes negative for acute disease CT interpreted by me (1pt min.). @ -no U/S interpreted by me (1pt. min.). @ -no What testing was considered but not performed or refused? (CT, X-rays, U/S, labs)? Why? @ -none What meds were considered but not given or refused? Why? @ -none Did you discuss the management of the patient with other professionals (professionals i.e. , PA, CINEMA OPERATOR, lab, RT, psych nurse, social work professor, angle bender, teacher, chief environmental commitment officer, trimming caser)? Give summary @ -no Was smoking cessation discussed for >3mins.? @ -no Was critical care preformed (if so, how long)? @ -no Were there social determinants of health that impacted care today? How? (Homelessness, low income, unemployed, alcoholism, drug addiction, transportation, low edu. Level, literacy, decrease access to med. care, custodial, rehab)? @ -none Was there de-escalation of care discussed even if they declined (Discuss DNR or withdrawal of care, Hospice)? DNR status @ -no What co-morbidities impacted this encounter? (DM, HTN, Smoking, COPD, CAD, Cancer, CVA, ARF, Chemo, Hep., AIDS, mental health diagnosis, sleep apnea, morbid obesity)? @ -none Was patient admitted / discharged? Hospital course, mention meds given and route, prescriptions, significant lab abnormalities, going to OR and other pertinent info. @ - 48 male to the ER for evaluation of nausea vomiting diarrhea symptoms improving throughout ER stay patient feels well and can be discharged home Discharge Undiagnosed new problem with uncertain prognosis? @ -no Drug Therapy requiring intensive monitoring for toxicity (Heparin, Nitro, Insulin, Cardizem)? @ -no Were any procedures done? @ -no Diagnosis/symptom? @ -Nausea vomiting diarrhea Acute, or Chronic, or Acute on Chronic? @ -Acute Uncomplicated (without systemic symptoms) or Complicated (systemic symptoms)? @ -Complicated Side effects of treatment? @ -no Exacerbation, Progression, or Severe Exacerbation? @ -exacerbation Poses a threat to life or bodily function? How? (Chest pain, [place], [place], pneumonia, PE, COPD, DKA, ARF, appy, cholecystitis, CVA, Diverticulitis, Homicidal, Suicidal, threat to staff... and all critical care pts) @ -no Reevaluation #5: Differential Abdominal Pain Men: Appendicitis, cholecystitis, diverticulosis, ischemic bowel, pancreatitis, hepatitis, UTI, gastroenteritis, AAA, incarcerated hernia, bowel obstruction, constipation, inflammatory bowel, hepatitis, peptic ulcer disease, splenic infarction, perforated viscus, testicular torsion, this is not meant to be an all-inclusive list Medical Decision Making - Medical Decision Making 48 male to the ER for evaluation of nausea vomiting diarrhea symptoms improving throughout ER stay patient feels well and can be discharged home - Lab Data Result diagrams: 08/05/24 02:40 08/05/24 02:41 Lab Results 08/05/24 08/05/24 08/05/24 Range/Units 02:40 02:41 02:41 WBC 47.49 H (4.50-10.00) 10*3/uL RBC 3.51 L (4.40-5.60) 10*6/uL Hgb 11.2 L (13.0-17.0) g/dL Hct 31.8 L (39.6-50.0) % MCV 90.6 (80.0-97.0) fL MCH 31.9 (27.0-32.0) pg MCHC 35.2 (32.0-37.0) g/dL Plt Count 334 (140-440) 10*3/uL MPV 9.1 L (9.5-12.2) fL Immature Gran % (Auto) 12.6 % Neutrophils % (Manual) 89 % Band Neuts % (Manual) 6 % Lymphocytes % (Manual) 5 % Metamyelocytes % 1 % Immature Gran # 6.00 H (0.00-0.04) 10*3/uL Neutrophils # (Manual) 45.11 H (1.3-7.7) k/uL Lymphocytes # (Manual) 2.37 (1.0-4.8) k/uL Metamyelocytes # (Man) 0.47 H (0) k/uL Nucleated RBCs 0 (0-0) /100 WBC Manual Slide Review Performed Anisocytosis (manual) Present Sodium 131 L (137-145) mmol/L Potassium 5.0 (3.5-5.1) mmol/L Chloride 98 (98-107) mmol/L Carbon Dioxide 22 (22-30) mmol/L Anion Gap 11 mmol/L BUN 20 (9-20) mg/dL Creatinine 0.78 (0.66-1.25) mg/dL Est GFR (CKD-EPI)AfAm >90 (>60 ml/min/1.73 sqM) Est GFR (CKD-EPI)NonAf >90 (>60 ml/min/1.73 sqM) Glucose 97 (74-99) mg/dL Lactic Ac Sepsis Rflx Plasma Lactic Acid Vishal 2.3 H* (0.7-2.0) mmol/L Calcium 10.5 H (8.4-10.2) mg/dL Phosphorus 3.1 (2.5-4.5) mg/dL Magnesium 1.9 (1.6-2.3) mg/dL Total Bilirubin 1.5 H (0.2-1.3) mg/dL AST 25 (17-59) U/L ALT 25 (4-49) U/L Alkaline Phosphatase 84 (38-126) U/L Total Protein 7.2 (6.3-8.2) g/dL Albumin 4.7 (3.5-5.0) g/dL Lipase 39 (23-300) U/L 08/05/24 Range/Units 04:44 WBC (4.50-10.00) 10*3/uL RBC (4.40-5.60) 10*6/uL Hgb (13.0-17.0) g/dL Hct (39.6-50.0) % MCV (80.0-97.0) fL MCH (27.0-32.0) pg MCHC (32.0-37.0) g/dL Plt Count (140-440) 10*3/uL MPV (9.5-12.2) fL Immature Gran % (Auto) % Neutrophils % (Manual) % Band Neuts % (Manual) % Lymphocytes % (Manual) % Metamyelocytes % % Immature Gran # (0.00-0.04) 10*3/uL Neutrophils # (Manual) (1.3-7.7) k/uL Lymphocytes # (Manual) (1.0-4.8) k/uL Metamyelocytes # (Man) (0) k/uL Nucleated RBCs (0-0) /100 WBC Manual Slide Review Anisocytosis (manual) Sodium (137-145) mmol/L Potassium (3.5-5.1) mmol/L Chloride (98-107) mmol/L Carbon Dioxide (22-30) mmol/L Anion Gap mmol/L BUN (9-20) mg/dL Creatinine (0.66-1.25) mg/dL Est GFR (CKD-EPI)AfAm (>60 ml/min/1.73 sqM) Est GFR (CKD-EPI)NonAf (>60 ml/min/1.73 sqM) Glucose (74-99) mg/dL Lactic Ac Sepsis Rflx Y Plasma Lactic Acid Vishal (0.7-2.0) mmol/L Calcium (8.4-10.2) mg/dL Phosphorus (2.5-4.5) mg/dL Magnesium (1.6-2.3) mg/dL Total Bilirubin (0.2-1.3) mg/dL AST (17-59) U/L ALT (4-49) U/L Alkaline Phosphatase (38-126) U/L Total Protein (6.3-8.2) g/dL Albumin (3.5-5.0) g/dL Lipase (23-300) U/L - Radiology Data Radiology results: report reviewed (X-ray KUB negative for acute disease), image reviewed Disposition Clinical Impression: Dehydration, Constipation, Nausea & vomiting Disposition: HOME SELF-CARE Condition: Fair Instructions (If sedation given, give patient instructions): Acute Nausea and Vomiting (ED) Is patient prescribed a controlled substance at d/c from ED?: No Referrals: Alexy Jacobs MD [Primary Care Provider] - 1-2 days Time of Disposition: 03:50
[2024-08-05] MEDS: SODIUM CHLORIDE 0.9% 1,000 ML IV SCH (02:48)
[2024-08-05] MEDS: PANTOPRAZOLE 40 MG/10 ML VIAL IVP STA (02:49)
[2024-08-05] MEDS: ONDANSETRON 4 MG/2 ML VIAL IVP STA (02:50)
[2024-08-05] MEDS: MORPHINE SULFATE 4 MG/ML SYRINGE IV STA (02:50)
[2024-08-05 03:11] LABS: HCT 31.8 % (39.6-50.0); HGB 11.2 g/dL (13.0-17.0); MCH 31.9 pg (27.0-32.0); MCHC 35.2 g/dL (32.0-37.0); MCV 90.6 fL (80.0-97.0); Mean Platelet Volume 9.1 fL (9.5-12.2); Platelet Count 334 10*3/uL (140-440); RBC 3.51 10*6/uL (4.40-5.60); WBC 47.49 10*3/uL (4.50-10.00)
[2024-08-05 03:16] LABS: ALT 25 U/L (4-49); African American GFR (CKD) >90 (>60 ml/min/1.73 sqM); Albumin 4.7 g/dL (3.5-5.0); Anion Gap 11 mmol/L; Blood Urea Nitrogen 20 mg/dL (9-20); Calcium 10.5 mg/dL (8.4-10.2); Carbon Dioxide 22 mmol/L (22-30); Chloride 98 mmol/L (98-107); Glucose 97 mg/dL (74-99); Lipase 39 U/L (23-300); Non-African American GFR(CKD) >90 (>60 ml/min/1.73 sqM); Sodium 131 mmol/L (137-145); Total Bilirubin 1.5 mg/dL (0.2-1.3); Total Protein 7.2 g/dL (6.3-8.2)
--- NOTE | 2024-08-05 03:25 | XR ---
EXAM: XR Abdomen, 1 View CLINICAL HISTORY: ITS.REASON XR Reason: pain TECHNIQUE: Frontal supine view of the abdomen/pelvis. COMPARISON: None. FINDINGS: Gastrointestinal tract: Unremarkable. No dilation. Moderately large stool volume. Bones/joints: No acute fracture. Arthritis of the pubic symphysis. 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 Other findings: No pathological calcifications are seen in the abdomen/pelvis. . IMPRESSION: Nonspecific/nonobstructive bowel gas pattern. Moderately large colonic stool volume. .
[2024-08-05 03:46] LABS: AST 25 U/L (17-59); Magnesium 1.9 mg/dL (1.6-2.3); Phosphorus 3.1 mg/dL (2.5-4.5)
[2024-08-05 03:47] LABS: Alkaline Phosphatase 84 U/L (38-126)
[2024-08-05] MEDS: SENNOSIDES-DOCUSATE SODIUM 1 EACH TAB PO STA (04:12)
[2024-08-05] MEDS: ONDANSETRON 4 MG ODT STARTER PACK 2 TAB BTL PO STA (04:12)
[2024-08-05] MEDS: GLYCERIN ADULT SUPPOSITORY 1 EACH RECTAL STA (04:14)
[2024-08-05] MEDS: KETOROLAC 15 MG/ML 1 ML VIAL IVP STA (04:15)
[2024-08-05 04:20] LABS: Anisocytosis (M) Present; Band Neutrophils % 6 %; Lymphocytes # (M) 2.37 k/uL (1.0-4.8); Metamyelocytes # (M) 0.47 k/uL (0); Metamyelocytes % 1 %; Neutrophils # (M) 45.11 k/uL (1.3-7.7); Neutrophils % (M) 89 %; Nucleated Red Blood Cells 0 /100 WBC (0-0); Total Cells Counted 200
[2024-08-05 04:23] VITALS: BP 127/85; PULSE 84; TEMP 98.1
== END 2024-08-05 04:23 | disposition home or self-care (01) ==
LOC: EC 02:01
DX: K59.00 Constipation, unspecified (principal); E86.0 Dehydration
CPT/HCPCS: 36415; 80053; 83605; 83690; 83735; 84100; 85025; 74018; 99284; 96374; 96375 ×3; 96361; J2270; J2405; J1885; S0119; J2470

== ENCOUNTER 2024-09-15 11:22 | Day surgery (SDC) | payer BC ==
[~2024-09-15 11:22] MED LIST: ceFAZolin 3 GM in SODIUM CHLORIDE 0.9% 100 ML IVPB PRN
[2024-09-15] MEDS ORDERED: MIDAZOLAM 2 MG/2 ML VIAL IV PRN (11:47)
[2024-09-15] MEDS ORDERED: HYDROmorphone 0.5 MG/0.5 ML SYRINGE IVP PRN (11:47)
[2024-09-15] MEDS ORDERED: SCOPOLAMINE 1 MG/72 HR PATCH TRANSDERM ONE (11:47)
[2024-09-15] MEDS: IV FLUID CONTINUATION 1,000 ML IV ONE (12:03)
[2024-09-15 12:05] VITALS: TEMP 97
[2024-09-15] MEDS: LACTATED RINGERS 1,000 ML IV SCH (12:15)
[2024-09-15] MEDS: ONDANSETRON 4 MG/2 ML VIAL IVP ONE (12:17)
[2024-09-15] MEDS: DEXAMETHASONE SOD PHOSPHATE 4 MG/ML 1 ML VIAL IV ONE (12:17)
[2024-09-15] MEDS ORDERED: PROPOFOL 10 MG/ML 20 ML VIAL IV ONE (13:00)
[2024-09-15] MEDS ORDERED: fentaNYL (PF) 50 MCG/ML 2 ML AMP ONE (13:00)
[2024-09-15] MEDS ORDERED: LIDOCAINE 1% INJ 10MG/ML (20 ML MDV) ONE (13:00)
[2024-09-15] MEDS ORDERED: MIDAZOLAM 2 MG/2 ML VIAL ONE (13:00)
[2024-09-15] MEDS: BUPIVACAINE (PF) 0.25% 30 ML VIAL SQ ONE ×2 (13:13)
[2024-09-15] MEDS: SODIUM CHLORIDE 0.9% 100 ML with ceFAZolin 3,000 MG IV ONE (13:15)
[2024-09-15 13:42] VITALS: RESP 16
[2024-09-15] MEDS ORDERED: NALOXONE 0.4 MG/ML 1 ML VIAL IV PRN (13:43)
--- NOTE | 2024-09-15 13:46 | P.OP ---
Date of Procedure: 09/15/24 Procedure(s) Performed: PREOPERATIVE DIAGNOSIS: Testicular cancer POSTOPERATIVE DIAGNOSIS: Same PROCEDURE: Port-A-Cath removal SURGEON: Quinton EBL: Minimal ANESTHESIA: Sedation COMPLICATIONS: None OPERATIVE PROCEDURE: Patient was placed in the supine position. The patient was sedated per anesthesia that time. The chest was prepped and draped in the usual sterile fashion. The skin was localized with Marcaine solution. The previous incision was re- excised using a scalpel. The port was easily excised using accommodation of blunt dissection sharp dissection and electrocautery. The subcutaneous tissues were reapproximated using 3-0 Vicryl sutures. The skin was reapproximated using 4-0 Monocryl sutures. Skin glue was then applied. DISPOSITION: Stable to recovery room
[2024-09-15 13:53] VITALS: BP 153/95; PULSE 72
== END 2024-09-15 14:14 | disposition home or self-care (01) ==
LOC: OR 11:22
PROVIDERS: ATTEND Surgery
DX: Z45.2 Encounter for adjustment and management of vascular access device (principal); I10 Essential (primary) hypertension; Z79.899 Other long term (current) drug therapy; Z85.47 Personal history of malignant neoplasm of testis
CPT/HCPCS: 36590; J1100; J2405; J0690; J0665